=== PATIENT | male | born 1940 | race Caucasian/White ===

== ENCOUNTER 2019-12-08 19:06 | Emergency (ER) | payer MEDICARE ==
[2019-12-08 19:47] LABS: BASOPHILS % (AUTO) 0.8 % (0.0-5.0); EOSINOPHILS % (AUTO) 2.5 % (0.0-8.0); HEMATOCRIT 46.5 % (42-54); LYMPHOCYTES % (AUTO) 17.8 % (21.0-51.0); MEAN CORPUSCULAR HEMOGLOBIN 31.5 pg (27.0-33.0); MEAN CORPUSCULAR HGB CONC 32.7 g/dL (32.0-36.0); MEAN CORPUSCULAR VOLUME 96.3 fL (79-99); MONOCYTES % (AUTO) 7.9 % (3.0-13.0); NEUTROPHILS % (AUTO) 70.7 % (40.0-77.0); PLATELET COUNT (AUTO) 214 K/uL (130-400); RED BLOOD CELL COUNT(AUTO) 4.83 MIL/uL (4.50-6.20); RED CELL DISTRIBUTION WIDTH 14.3 % (11.0-15.5); WHITE BLOOD COUNT (AUTO) 9.5 K/uL (4.8-10.8)
[2019-12-08 20:05] LABS: ALBUMIN 3.5 g/dL (3.5-5.0); BILIRUBIN,TOTAL 0.5 mg/dL (0.2-1.0); CREATININE 1.6 mg/dL (0.5-1.5); TOTAL PROTEIN, SERUM 7.1 g/dL (6.0-8.3)
[2019-12-08] MEDS ORDERED: POTASSIUM BICARB/CIT AC 25 MEQ TABLET.EFF ONE (20:13)
== END 2019-12-08 20:39 | disposition home or self-care (01) ==
LOC: EDH 19:06
DX: E13.649 Other specified diabetes mellitus with hypoglycemia without coma (principal); I10 Essential (primary) hypertension; Z87.891 Personal history of nicotine dependence; J44.9 Chronic obstructive pulmonary disease, unspecified
CPT/HCPCS: 36415; 80053; 82948; 84484; 85025; 93005

== ENCOUNTER 2019-12-13 15:32 | Inpatient (IN) | payer MEDICARE ==
[~2019-12-13] VITALS: Ht 160 cm; Wt 182.2 kg
[2019-12-13 11:40] VITALS: BP 119/54
[2019-12-13 16:15] LABS: EOSINOPHILS % (AUTO) 3.4 % (0.0-8.0); HEMATOCRIT 44.1 % (42-54); LYMPHOCYTES % (AUTO) 26.8 % (21.0-51.0); MEAN CORPUSCULAR HEMOGLOBIN 31.5 pg (27.0-33.0); MEAN CORPUSCULAR HGB CONC 33.1 g/dL (32.0-36.0); MEAN CORPUSCULAR VOLUME 95.2 fL (79-99); MONOCYTES % (AUTO) 8.5 % (3.0-13.0); NEUTROPHILS % (AUTO) 59.9 % (40.0-77.0); PLATELET COUNT (AUTO) 188 K/uL (130-400); RED BLOOD CELL COUNT(AUTO) 4.63 MIL/uL (4.50-6.20); RED CELL DISTRIBUTION WIDTH 13.9 % (11.0-15.5); WHITE BLOOD COUNT (AUTO) 7.9 K/uL (4.8-10.8)
[2019-12-13] MEDS ORDERED: IPRATROPIUM/ALBUTEROL SULFATE 3 ML SOLUTION IH ONE (16:15)
[2019-12-13] MEDS ORDERED: SODIUM CHLORIDE 0.9% 50 ML IV ONE (16:22)
[2019-12-13] MEDS ORDERED: CEFTRIAXONE SODIUM 1 GM ONE (16:22)
[2019-12-13] MEDS ORDERED: AZITHROMYCIN 500MG+NS 250ML 250 ML IV ONE (16:22)
[2019-12-13 16:29] LABS: ALBUMIN 3.3 g/dL (3.5-5.0); BILIRUBIN,TOTAL 0.6 mg/dL (0.2-1.0); CREATININE 1.8 mg/dL (0.5-1.5); INR 1.01 (0.85-1.15); PARTIAL THROMBOPLASTIN TIME 25.9 SEC (26.3-35.5); PROTHROMBIN TIME 10.6 SEC (9.6-11.6); TOTAL PROTEIN, SERUM 6.8 g/dL (6.0-8.3)
[2019-12-13 16:33] LABS: POTASSIUM 2.8 mmol/L (3.5-5.1)
[2019-12-13 16:46] LABS: B-TYPE NATRIURETIC PEPTIDE 54 pg/mL (0-100)
[2019-12-13] MEDS ORDERED: POTASSIUM CHLORIDE 20 MEQ ERTAB PO ONE ×2 (17:05→19:22)
[2019-12-13] MEDS ORDERED: DEXTROSE 50%-WATER 50 ML DISP.SYRIN IV ONE (17:23)
[2019-12-13] MEDS ORDERED: BENZONATATE 100 MG CAPSULE PO ONE (19:23)
[2019-12-13 19:39] LABS: APPEARANCE,URINE Clear (CLEAR); BILIRUBIN,URINE Negative (NEGATIVE); COLOR,URINE Yellow (YELLOW); GLUCOSE, URINE (UA) Negative (NEGATIVE); KETONES,URINE Negative (NEGATIVE); LEUKOCYTE ESTERASE ,URINE Trace (NEGATIVE); NITRATE,URINE Negative (NEGATIVE); OCCULT BLOOD,URINE Negative (NEGATIVE); PH,URINE 7.5 (5.0-8.0); PROTEIN,URINE Negative (NEGATIVE)
[2019-12-13 19:52] LABS: BACTERIA,URINE Rare /HPF (None Seen); MUCUS,URINE Few LPF (None Seen); RBC,URINE 0-1 /HPF (0-1); SQUAMOUS EPITHELIAL CELL,UR Rare /HPF (0-2); WBC,URINE 0-1 /HPF (0-1)
[2019-12-13] MEDS: BENZONATATE 100 MG CAPSULE PO SCH (21:00)
[2019-12-13 21:28] LABS: PROTEIN,URINE RANDOM 10.1 mg/dL (0-11.9)
[2019-12-13 21:40] VITALS: BP 119/54
[2019-12-13] MEDS: IPRATROPIUM/ALBUTEROL SULFATE 3 ML SOLUTION IH SCH (21:49)
[2019-12-13] MEDS ORDERED: SODIUM CHLORIDE 3% FOR INHALATION 4 ML/AMP VIAL.NEB IH ONE (21:55)
[2019-12-13] MEDS: FUROSEMIDE 10 MG/ML 2ML VIAL IVP SCH (22:30)
[2019-12-13] MEDS ORDERED: SUCR1TAB28 PO (23:20)
[2019-12-13] MEDS ORDERED: PERCT10 PO (23:20)
[2019-12-13] MEDS ORDERED: CHOL500050 PO (23:20)
[2019-12-13] MEDS ORDERED: FOLI1TAB61 PO (23:20)
[2019-12-13] MEDS ORDERED: AMIO200T5 PO (23:20)
[2019-12-13] MEDS ORDERED: RANI150C4 PO (23:20)
[2019-12-13] MEDS ORDERED: DULO60CA64 PO (23:20)
[2019-12-13] MEDS ORDERED: VIT-7 PO (23:20)
[2019-12-13] MEDS ORDERED: INSU100C6 SQ (23:20)
[2019-12-13] MEDS ORDERED: ATOR20TA65 PO (23:20)
[2019-12-13] MEDS ORDERED: PREG150C PO (23:20)
[2019-12-13] MEDS ORDERED: CRAN1CAP10 PO (23:20)
[2019-12-13] MEDS ORDERED: FURO40TA5 PO (23:20)
[2019-12-13] MEDS ORDERED: METO25TA6 PO (23:20)
[2019-12-13] MEDS ORDERED: AEC81 PO (23:20)
[2019-12-13] MEDS ORDERED: FLUT16H NASAL (23:20)
[2019-12-13] MEDS ORDERED: MULT-1081 PO (23:20)
[2019-12-13] MEDS ORDERED: INSU100V12 SQ (23:20)
[2019-12-13] MEDS ORDERED: METO5TAB7 PO (23:20)
[2019-12-13] MEDS ORDERED: LEVO25TA54 PO (23:20)
[2019-12-13] MEDS ORDERED: APIX5TAB PO (23:20)
[2019-12-13] MEDS ORDERED: POTA-79 PO (23:20)
[2019-12-14] VITALS: BP 104/54
[2019-12-14] MEDS ORDERED: SODIUM CHLORIDE 3% FOR INHALATION 4 ML/AMP VIAL.NEB IH ONE (01:48)
[2019-12-14] MEDS: IPRATROPIUM/ALBUTEROL SULFATE 3 ML SOLUTION IH SCH ×6 (01:50→22:00)
[2019-12-14 04:00] VITALS: BP 135/77
[2019-12-14] MEDS: FUROSEMIDE 10 MG/ML 2ML VIAL IVP SCH ×2 (04:33→17:06)
[2019-12-14] MEDS: BENZONATATE 100 MG CAPSULE PO SCH ×3 (04:33→21:09)
[2019-12-14 05:41] LABS: HEMATOCRIT 41.7 % (42-54); MEAN CORPUSCULAR HEMOGLOBIN 31.2 pg (27.0-33.0); MEAN CORPUSCULAR HGB CONC 32.6 g/dL (32.0-36.0); MEAN CORPUSCULAR VOLUME 95.6 fL (79-99); PLATELET COUNT (AUTO) 180 K/uL (130-400); RED BLOOD CELL COUNT(AUTO) 4.36 MIL/uL (4.50-6.20); WHITE BLOOD COUNT (AUTO) 7.7 K/uL (4.8-10.8)
[2019-12-14 05:57] LABS: ALBUMIN 3.2 g/dL (3.5-5.0); BILIRUBIN,TOTAL 0.6 mg/dL (0.2-1.0); CREATININE 1.6 mg/dL (0.5-1.5); TOTAL PROTEIN, SERUM 6.5 g/dL (6.0-8.3)
[2019-12-14 06:01] LABS: POTASSIUM 2.9 mmol/L (3.5-5.1)
[2019-12-14 06:10] LABS: EOSINOPHILS % (MANUAL) 4 % (1-6); LYMPHOCYTES % (MANUAL) 26 % (22-44); MONOCYTES % (MANUAL) 7 % (2-9); SEGMENTED NEUTROPHILS % 63 % (40-70)
[2019-12-14 06:11] LABS: MAN.DIFF COMMENT-IMPRESSION MANUAL DIFFERENTIAL; PLATELET MORPHOLOGY COMMENT ADEQUATE
[2019-12-14] MEDS ORDERED: POTASSIUM CHLORIDE 20 MEQ ERTAB PO ONE (06:13)
[2019-12-14] MEDS ORDERED: LIDOCAINE HCL-MPF 1% 2ML VIAL IV PRN (06:15)
[2019-12-14] MEDS ORDERED: POTASSIUM CHLORIDE 20 MEQ ERTAB PO PRN (06:15)
[2019-12-14] MEDS ORDERED: POTASSIUM CHLORIDE 20MEQ/100ML 100 ML IV PRN (06:15)
[2019-12-14] MEDS ORDERED: POTASSIUM CHLORIDE 10% ELIXIR 20 MEQ/15 ML UDCUP PO PRN (06:15)
[2019-12-14] MEDS: INSULIN LISPRO 100 UNIT/ML 3ML SQ SCH ×3 (06:15→17:20)
[2019-12-14] MEDS: LIDOCAINE HCL-MPF 1% 2ML VIAL IV PRN (06:26)
[2019-12-14] MEDS: POTASSIUM CHLORIDE 20MEQ/100ML 100 ML IV PRN (06:26)
[2019-12-14 07:00] VITALS: BP 116/63
[2019-12-14] MEDS ORDERED: POTASSIUM CHLORIDE 20 MEQ ERTAB PO SCH (08:00)
[2019-12-14] MEDS: AZITHROMYCIN 500MG+NS 250ML 250 ML IV SCH (10:47)
[2019-12-14 11:00] VITALS: BP 141/66
--- NOTE | 2019-12-14 12:24 | NUR ---
INITIAL Patient lives with spouse. Negrita Poole from [place]. No home services. Patient has walker with seat, standard walker, CPAP, BPM. Patient is independent and drives. PCP is Dr. Bhavesh Zamora. Pharmacy is [facility] on [address]. DCP is home. Addendum: 12/14/19 at 1227 by GITA THOMPSON SS Amended: Links added.
[2019-12-14 16:00] VITALS: BP 125/63
[2019-12-14] MEDS: CEFTRIAXONE SODIUM 1 GM IVP SCH (17:06)
[2019-12-14 19:30] VITALS: BP 110/56
[2019-12-14 20:44] LABS: ABG BASE EXCESS 3.9 mmol/L (-2.0-3.0); ABG HCO3 27.8 mmol/L (21.0-28.0); ABG OXYGEN SATURATION 90.8 % (95.0-99.0); ABG PCO2 40 mmHg (35-48)
[2019-12-14 21:22] LABS: CRP QUANTITATIVE < 2.00 mg/L (0.00-9.0)
[2019-12-15] VITALS (7 sets, daily range): BP systolic 104–130; BP diastolic 50–76
[2019-12-15] MEDS: IPRATROPIUM/ALBUTEROL SULFATE 3 ML SOLUTION IH SCH ×6 (02:00→22:00)
[2019-12-15] MEDS: BENZONATATE 100 MG CAPSULE PO SCH ×3 (05:00→22:10)
[2019-12-15] MEDS: INSULIN LISPRO 100 UNIT/ML 3ML SQ SCH ×3 (05:29→18:16)
[2019-12-15 06:24] LABS: BASOPHILS % (AUTO) 0.5 % (0.0-5.0); EOSINOPHILS % (AUTO) 2.5 % (0.0-8.0); HEMATOCRIT 43.5 % (42-54); LYMPHOCYTES % (AUTO) 26.9 % (21.0-51.0); MEAN CORPUSCULAR HEMOGLOBIN 31.5 pg (27.0-33.0); MEAN CORPUSCULAR HGB CONC 33.6 g/dL (32.0-36.0); MEAN CORPUSCULAR VOLUME 93.8 fL (79-99); MONOCYTES % (AUTO) 10.4 % (3.0-13.0); NEUTROPHILS % (AUTO) 59.4 % (40.0-77.0); PLATELET COUNT (AUTO) 197 K/uL (130-400); RED BLOOD CELL COUNT(AUTO) 4.64 MIL/uL (4.50-6.20); RED CELL DISTRIBUTION WIDTH 14.4 % (11.0-15.5); WHITE BLOOD COUNT (AUTO) 7.6 K/uL (4.8-10.8)
[2019-12-15 07:32] LABS: CREATININE 1.4 mg/dL (0.5-1.5)
[2019-12-15 07:54] LABS: POTASSIUM 2.9 mmol/L (3.5-5.1)
[2019-12-15] MEDS: POTASSIUM CHLORIDE 20MEQ/100ML 100 ML IV PRN ×2 (08:56→13:53)
[2019-12-15] MEDS ORDERED: POTASSIUM CHLORIDE 20 MEQ ERTAB PO SCH (09:00)
[2019-12-15] MEDS ORDERED: VIT B CMPLX PO SCH (09:00)
[2019-12-15] MEDS ORDERED: [UNRECOGNIZED DRUG - OTHER] PO SCH (09:00)
[2019-12-15] MEDS ORDERED: BIOTIN PO SCH (09:00)
[2019-12-15] MEDS: LIDOCAINE HCL-MPF 1% 2ML VIAL IV PRN ×2 (09:00→13:53)
[2019-12-15] MEDS: AZITHROMYCIN 500MG+NS 250ML 250 ML IV SCH (09:01)
[2019-12-15] MEDS: FUROSEMIDE 10 MG/ML 2ML VIAL IVP SCH ×2 (09:01→16:50)
[2019-12-15] MEDS: FAMOTIDINE 20MG TAB 20 MG TAB PO SCH ×2 (10:51→22:11)
[2019-12-15] MEDS: SUCRALFATE 1 GM TABLET PO SCH ×4 (10:54→22:10)
[2019-12-15 11:52] LABS: HEMOGLOBIN A1C 6.4 % (4.0-6.0)
[2019-12-15] MEDS: AMIODARONE HCL 200 MG TABLET PO SCH (13:43)
[2019-12-15] MEDS: DULOXETINE HCL 30 MG CAP PO SCH (13:44)
[2019-12-15] MEDS: APIXABAN 5 MG TABLET PO SCH ×2 (13:44→16:41)
[2019-12-15] MEDS: ASPIRIN 81 MG EC TAB PO SCH (13:44)
[2019-12-15] MEDS: METOPROLOL TARTRATE 25 MG TAB PO SCH ×2 (13:48→22:10)
[2019-12-15] MEDS: ATORVASTATIN CALCIUM 20 MG TABLET PO SCH (13:48)
[2019-12-15 16:01] LABS: CREATININE 1.7 mg/dL (0.5-1.5); MAGNESIUM 1.6 mg/dL (1.80-2.40)
[2019-12-15 16:07] LABS: POTASSIUM 2.9 mmol/L (3.5-5.1)
[2019-12-15] MEDS: POTASSIUM CHLORIDE 20 MEQ ERTAB PO SCH (16:49)
[2019-12-15] MEDS: CEFTRIAXONE SODIUM 1 GM IVP SCH (16:49)
[2019-12-15] MEDS: MAGNESIUM 2GM PREMIX 50ML 50 ML IV SCH (17:02)
[2019-12-15] MEDS: ASCORBIC ACID PO SCH (21:00)
[2019-12-15] MEDS: CRANBERRY PO SCH (21:00)
[2019-12-16] MEDS: IPRATROPIUM/ALBUTEROL SULFATE 3 ML SOLUTION IH SCH ×6 (01:27→21:17)
[2019-12-16 04:00] VITALS: BP 110/51
[2019-12-16 05:24] LABS: BASOPHILS % (AUTO) 0.7 % (0.0-5.0); EOSINOPHILS % (AUTO) 2.5 % (0.0-8.0); HEMATOCRIT 42.1 % (42-54); LYMPHOCYTES % (AUTO) 25.8 % (21.0-51.0); MEAN CORPUSCULAR HEMOGLOBIN 30.8 pg (27.0-33.0); MEAN CORPUSCULAR VOLUME 93.1 fL (79-99); MONOCYTES % (AUTO) 11.9 % (3.0-13.0); PLATELET COUNT (AUTO) 187 K/uL (130-400); RED BLOOD CELL COUNT(AUTO) 4.52 MIL/uL (4.50-6.20); RED CELL DISTRIBUTION WIDTH 14.3 % (11.0-15.5); WHITE BLOOD COUNT (AUTO) 7.2 K/uL (4.8-10.8)
[2019-12-16 05:46] LABS: CREATININE 1.5 mg/dL (0.5-1.5); MAGNESIUM 1.8 mg/dL (1.80-2.40)
[2019-12-16] MEDS: LIDOCAINE HCL-MPF 1% 2ML VIAL IV PRN (06:01)
[2019-12-16] MEDS: POTASSIUM CHLORIDE 20MEQ/100ML 100 ML IV PRN (06:01)
[2019-12-16] MEDS: FUROSEMIDE 10 MG/ML 2ML VIAL IVP SCH ×2 (06:02→18:18)
[2019-12-16] MEDS: LEVOTHYROXINE 25 MCG TABLET PO SCH (06:02)
[2019-12-16] MEDS: BENZONATATE 100 MG CAPSULE PO SCH ×3 (06:02→20:03)
[2019-12-16 07:00] VITALS: BP 140/63
[2019-12-16] MEDS ORDERED: POTASSIUM CHLORIDE 20 MEQ ERTAB PO SCH (08:40)
[2019-12-16] MEDS: ASCORBIC ACID PO SCH ×2 (09:00→19:57)
[2019-12-16] MEDS: **HM**(Cholecalciferol (Vitamin D3) (Vitamin D3) 1,000 UNIT) PO SCH (09:00)
[2019-12-16] MEDS: CRANBERRY PO SCH ×2 (09:00→19:57)
[2019-12-16] MEDS: AZITHROMYCIN 500MG+NS 250ML 250 ML IV SCH (09:28)
[2019-12-16] MEDS: APIXABAN 5 MG TABLET PO SCH ×2 (09:28→20:03)
[2019-12-16] MEDS: FAMOTIDINE 20MG TAB 20 MG TAB PO SCH ×2 (09:28→20:03)
[2019-12-16] MEDS: METOPROLOL TARTRATE 25 MG TAB PO SCH ×2 (09:28→20:03)
[2019-12-16] MEDS: SUCRALFATE 1 GM TABLET PO SCH ×4 (09:28→20:03)
[2019-12-16] MEDS: FOLIC ACID/VITAMIN B COMP W-C 1 MG CAP/TAB PO SCH (09:28)
[2019-12-16] MEDS: ATORVASTATIN CALCIUM 20 MG TABLET PO SCH (09:29)
[2019-12-16] MEDS: DULOXETINE HCL 30 MG CAP PO SCH (09:29)
[2019-12-16] MEDS: AMIODARONE HCL 200 MG TABLET PO SCH (09:29)
[2019-12-16] MEDS: ASPIRIN 81 MG EC TAB PO SCH (09:29)
[2019-12-16] MEDS: MULTIVITAMIN WITH MINERALS TABLET PO SCH (09:29)
[2019-12-16] MEDS: PROMETHAZINE HCL 25 MG TABLET PO PRN ×2 (09:37→11:28)
[2019-12-16] MEDS: INSULIN LISPRO 100 UNIT/ML 3ML SQ SCH ×3 (09:44→18:21)
[2019-12-16] MEDS ORDERED: INSULIN GLARGINE 100 UNITS/ML 10 ML VIAL SQ SCH (09:55)
[2019-12-16 11:00] VITALS: BP 115/69
--- NOTE | 2019-12-16 11:29 | NUR ---
PATIENT C/O NAUSEA NOT RELIEVED BY PO [facility]ENERGAN. SPOKE WITH DR. MILLER STATED GIVE ONE MORE DOSE OF PO PHENERGAN.
[2019-12-16 16:00] VITALS: BP 136/72
[2019-12-16] MEDS: CEFTRIAXONE SODIUM 1 GM IVP SCH (18:18)
[2019-12-16] MEDS: POTASSIUM CHLORIDE 20 MEQ ERTAB PO SCH (18:19)
[2019-12-16 19:51] VITALS: BP 122/69
[2019-12-16] MEDS: MAGNESIUM 2GM PREMIX 50ML 50 ML IV SCH (20:04)
[2019-12-16 23:52] VITALS: BP 109/65
[2019-12-17] VITALS (7 sets, daily range): BP systolic 100–147; BP diastolic 42–79
[2019-12-17] MEDS: IPRATROPIUM/ALBUTEROL SULFATE 3 ML SOLUTION IH SCH ×6 (01:10→22:45)
[2019-12-17] MEDS: FUROSEMIDE 10 MG/ML 2ML VIAL IVP SCH (05:00)
[2019-12-17] MEDS: BENZONATATE 100 MG CAPSULE PO SCH ×3 (05:44→20:17)
[2019-12-17] MEDS: LEVOTHYROXINE 25 MCG TABLET PO SCH (05:44)
[2019-12-17 07:19] LABS: HEMATOCRIT 44.1 % (42-54); MEAN CORPUSCULAR HEMOGLOBIN 31.3 pg (27.0-33.0); MEAN CORPUSCULAR HGB CONC 33.1 g/dL (32.0-36.0); MEAN CORPUSCULAR VOLUME 94.4 fL (79-99); PLATELET COUNT (AUTO) 190 K/uL (130-400); RED BLOOD CELL COUNT(AUTO) 4.67 MIL/uL (4.50-6.20); RED CELL DISTRIBUTION WIDTH 14.4 % (11.0-15.5); WHITE BLOOD COUNT (AUTO) 7.6 K/uL (4.8-10.8)
[2019-12-17] MEDS: INSULIN LISPRO 100 UNIT/ML 3ML SQ SCH ×3 (07:30→17:59)
[2019-12-17 07:33] LABS: CREATININE 1.5 mg/dL (0.5-1.5); MAGNESIUM 2.1 mg/dL (1.80-2.40); POTASSIUM 3.1 mmol/L (3.5-5.1)
[2019-12-17 08:06] LABS: BASOPHILS % (MANUAL) 1 % (0-2); EOSINOPHILS % (MANUAL) 1 % (1-6); LYMPHOCYTES % (MANUAL) 21 % (22-44); MAN.DIFF COMMENT-IMPRESSION MANUAL DIFFERENTIAL; MONOCYTES % (MANUAL) 8 % (2-9); PLATELET MORPHOLOGY COMMENT ADEQUATE; REACTIVE LYMPHOCYTES 1 % (0-0); SEGMENTED NEUTROPHILS % 68 % (40-70)
[2019-12-17] MEDS: SUCRALFATE 1 GM TABLET PO SCH ×4 (09:00→20:18)
[2019-12-17] MEDS: ASCORBIC ACID PO SCH ×2 (09:00→19:45)
[2019-12-17] MEDS: METOPROLOL TARTRATE 25 MG TAB PO SCH ×2 (09:00→20:18)
[2019-12-17] MEDS: ATORVASTATIN CALCIUM 20 MG TABLET PO SCH (09:00)
[2019-12-17] MEDS: POTASSIUM CHLORIDE 20 MEQ ERTAB PO SCH ×2 (09:00→17:59)
[2019-12-17] MEDS: MULTIVITAMIN WITH MINERALS TABLET PO SCH (09:00)
[2019-12-17] MEDS: DULOXETINE HCL 30 MG CAP PO SCH (09:00)
[2019-12-17] MEDS: AZITHROMYCIN 500MG+NS 250ML 250 ML IV SCH (09:00)
[2019-12-17] MEDS: FOLIC ACID/VITAMIN B COMP W-C 1 MG CAP/TAB PO SCH (09:00)
[2019-12-17] MEDS: CRANBERRY PO SCH ×2 (09:00→19:45)
[2019-12-17] MEDS: ASPIRIN 81 MG EC TAB PO SCH (09:00)
[2019-12-17] MEDS: AMIODARONE HCL 200 MG TABLET PO SCH (09:00)
[2019-12-17] MEDS: FAMOTIDINE 20MG TAB 20 MG TAB PO SCH ×2 (09:00→20:17)
[2019-12-17] MEDS: **HM**(Cholecalciferol (Vitamin D3) (Vitamin D3) 1,000 UNIT) PO SCH (09:00)
[2019-12-17] MEDS: APIXABAN 5 MG TABLET PO SCH ×2 (09:00→20:17)
--- NOTE | 2019-12-17 15:00 | NUR ---
CM Note: [facility] pending acceptance CM met with pt and spouse discussed MD recommendations for short term rehab, pt at this time agreeable, spouse verbalized prefers [facility], pt signed [facility] for [facility]. Faxed order, clinicals, PT, and [facility], confirmation received. Spoke to Kim will come eval pt. Pt pending acceptance. Primary nurse aware. EMS filled out and faxed for today in case pt has approval and ready to DC, primary nurse to call [facility] once pt ready to DC. Primary nurse aware. CM to cont to follow up.
--- NOTE | 2019-12-17 16:10 | NUR ---
1530 gave patient BPCI Letter. Notified him that Shama, our BPCI Coordinator would be contacting him within the next 90 days to follow up with him.
[2019-12-17] MEDS: CEFTRIAXONE SODIUM 1 GM IVP SCH (17:58)
[2019-12-17] MEDS: INSULIN GLARGINE 100 UNITS/ML 10 ML VIAL SQ SCH (20:16)
[2019-12-18] MEDS: IPRATROPIUM/ALBUTEROL SULFATE 3 ML SOLUTION IH SCH ×3 (01:35→10:12)
[2019-12-18] MEDS: INSULIN GLARGINE 100 UNITS/ML 10 ML VIAL SQ SCH (06:30)
[2019-12-18] MEDS: BENZONATATE 100 MG CAPSULE PO SCH ×2 (06:33→11:50)
[2019-12-18] MEDS: LEVOTHYROXINE 25 MCG TABLET PO SCH (06:33)
[2019-12-18 07:30] VITALS: BP 120/64
[2019-12-18] MEDS: INSULIN LISPRO 100 UNIT/ML 3ML SQ SCH ×2 (07:38→11:55)
[2019-12-18 08:14] LABS: BASOPHILS % (AUTO) 1.1 % (0.0-5.0); EOSINOPHILS % (AUTO) 2.1 % (0.0-8.0); HEMATOCRIT 42.6 % (42-54); LYMPHOCYTES % (AUTO) 25.6 % (21.0-51.0); MEAN CORPUSCULAR HEMOGLOBIN 31.6 pg (27.0-33.0); MEAN CORPUSCULAR HGB CONC 33.3 g/dL (32.0-36.0); MEAN CORPUSCULAR VOLUME 94.9 fL (79-99); MONOCYTES % (AUTO) 10.3 % (3.0-13.0); NEUTROPHILS % (AUTO) 60.6 % (40.0-77.0); PLATELET COUNT (AUTO) 177 K/uL (130-400); RED BLOOD CELL COUNT(AUTO) 4.49 MIL/uL (4.50-6.20); RED CELL DISTRIBUTION WIDTH 14.4 % (11.0-15.5); WHITE BLOOD COUNT (AUTO) 7.5 K/uL (4.8-10.8)
[2019-12-18] MEDS: ASPIRIN 81 MG EC TAB PO SCH (08:40)
[2019-12-18] MEDS: METOPROLOL TARTRATE 25 MG TAB PO SCH (08:40)
[2019-12-18] MEDS: ATORVASTATIN CALCIUM 20 MG TABLET PO SCH (08:40)
[2019-12-18] MEDS: MULTIVITAMIN WITH MINERALS TABLET PO SCH (08:40)
[2019-12-18] MEDS: APIXABAN 5 MG TABLET PO SCH (08:40)
[2019-12-18] MEDS: AMIODARONE HCL 200 MG TABLET PO SCH (08:40)
[2019-12-18] MEDS: FOLIC ACID/VITAMIN B COMP W-C 1 MG CAP/TAB PO SCH (08:40)
[2019-12-18] MEDS: FAMOTIDINE 20MG TAB 20 MG TAB PO SCH (08:40)
[2019-12-18] MEDS: SUCRALFATE 1 GM TABLET PO SCH ×2 (08:40→11:50)
[2019-12-18] MEDS: POTASSIUM CHLORIDE 20 MEQ ERTAB PO SCH (08:41)
[2019-12-18] MEDS: DULOXETINE HCL 30 MG CAP PO SCH (08:41)
[2019-12-18] MEDS: AZITHROMYCIN 500MG+NS 250ML 250 ML IV SCH (08:41)
[2019-12-18] MEDS: **HM**(Cholecalciferol (Vitamin D3) (Vitamin D3) 1,000 UNIT) PO SCH (08:42)
[2019-12-18] MEDS: CRANBERRY PO SCH (08:43)
[2019-12-18] MEDS: ASCORBIC ACID PO SCH (08:43)
[2019-12-18 08:51] LABS: ALBUMIN 3.3 g/dL (3.5-5.0); BILIRUBIN,TOTAL 0.8 mg/dL (0.2-1.0); CREATININE 1.5 mg/dL (0.5-1.5); POTASSIUM 3.3 mmol/L (3.5-5.1); TOTAL PROTEIN, SERUM 6.9 g/dL (6.0-8.3)
--- NOTE | 2019-12-18 09:52 | NUR ---
CM Note: [facility] acceptance CM spoke to Kim mishra/Ruel Rosenthal. Pt has acceptance. EMS arranged and faxed for today, primary nurse to call [facility] once pt ready to DC. Primary nurse aware. CM to cont to follow up.
[2019-12-18 11:00] VITALS: BP 127/68
[2019-12-18] MEDS ORDERED: IPRATROPIUM/ALBUTEROL SULFATE 3 ML SOLUTION IH SCH (18:00)
== END 2019-12-18 15:35 | DRG 193 ==
LOC: EDH 15:32 → EDHIP 17:00 → 3DH 21:08
PROVIDERS: ADMIT Internal Medicine; ATTEND Internal Medicine
PROC: 5A09357 Assistance with Respiratory Ventilation, Less than 24 Consecutive Hours, Continuous Positive Airway Pressure (ICD-10-PCS; principal; 2019-12-15)
PROC: 5A09357 Assistance with Respiratory Ventilation, Less than 24 Consecutive Hours, Continuous Positive Airway Pressure (ICD-10-PCS; 2019-12-16)
PROC: 5A09357 Assistance with Respiratory Ventilation, Less than 24 Consecutive Hours, Continuous Positive Airway Pressure (ICD-10-PCS; 2019-12-17)
DX: J18.9 Pneumonia, unspecified organism (principal); J96.01 Acute respiratory failure with hypoxia; J96.02 Acute respiratory failure with hypercapnia; N17.9 Acute kidney failure, unspecified; J44.1 Chronic obstructive pulmonary disease with (acute) exacerbation; J98.11 Atelectasis; D68.69 Other thrombophilia; J44.0 Chronic obstructive pulmonary disease with (acute) lower respiratory infection; Z68.45 Body mass index [BMI] 70 or greater, adult; E87.6 Hypokalemia; E11.42 Type 2 diabetes mellitus with diabetic polyneuropathy; E66.9 Obesity, unspecified; I10 Essential (primary) hypertension; I48.91 Unspecified atrial fibrillation; M48.061 Spinal stenosis, lumbar region without neurogenic claudication; G51.0 Bell's palsy; G47.33 Obstructive sleep apnea (adult) (pediatric); I50.9 Heart failure, unspecified; Z80.0 Family history of malignant neoplasm of digestive organs; Z87.891 Personal history of nicotine dependence; Z96.653 Presence of artificial knee joint, bilateral; Z90.49 Acquired absence of other specified parts of digestive tract
CPT/HCPCS: 36415; 36600; 70450; 71045; 71250; 72131; 73660; 80048; 80053; 81001; 82550; 82570; 82803; 82948; 83036; 83605; 83735; 83880; 84132; 84145; 84156; 84300; 84484; 85025; 85610; 85730; 86140; 87040; 87071; 87205; 87449; 87486; 87581; 87633; 87798; 87804; 93005; 94640; 94660; 94664; 97039; 99291; G0378; J0456; J0696; J1940; J3475; J3480; J3490; J7070; Q0169